=== PATIENT | female | born 1950 | race African-American/Black ===

== ENCOUNTER 2020-04-02 18:48 | Inpatient (IN) | payer MEDICARE, MEDICAID ==
[~2020-04-02] VITALS: Ht 170.2 cm; Wt 111.6 kg
[2020-04-02 19:00] VITALS: BP 121/84
[2020-04-02 19:30] VITALS: BP 121/84
[2020-04-02] MEDS ORDERED: METHYL SALICYLATE/MENTHOL CREAM 85GM TOP PRN (19:30)
[2020-04-02] MEDS ORDERED: BISACODYL 10MG SUPP PR PRN (19:30)
[2020-04-02] MEDS ORDERED: ALPRAZOLAM 0.5 MG TABLET PO PRN (19:30)
[2020-04-02] MEDS ORDERED: MAGNESIUM HYDROXIDE 400MG/5ML 30ML UDC PO PRN (19:30)
[2020-04-02] MEDS: SENNOSIDES 8.6MG TABLET PO PRN (21:01)
[2020-04-02] MEDS: METHOCARBAMOL 500MG TABLET PO SCH (21:01)
[2020-04-02] MEDS: HYDROCODONE/ACETAMINOPHEN 10/325MG TABLET PO PRN (21:03)
[2020-04-03] MEDS: HYDROCODONE/ACETAMINOPHEN 10/325MG TABLET PO PRN ×6 (01:06→22:58)
[2020-04-03] MEDS ORDERED: ALPR2TAB2 PO (04:53)
[2020-04-03] MEDS ORDERED: HYDR-3281 PO (04:55)
[2020-04-03 06:57] LABS: BASOPHILS % 0.9 % (0.0-2.0); EOSINOPHILS % 3.1 % (0.0-5.0); HEMOGLOBIN. 14.6 g/dL (12.0-16.0); LYMPHOCYTES % 45.9 % (20.0-50.0); MEAN CORPUSCULAR HEMOGLOBIN 29.6 pg (28.0-32.0); MEAN CORPUSCULAR VOLUME 84.8 fL (81.0-99.0); MEAN PLATELET VOLUME 7.8 fl (7.4-10.4); MONOCYTES % 11.2 % (2.0-8.0); NEUTROPHILS % 38.9 % (40.0-76.0); PLATELET 189 x1000/uL (130-400); RED BLOOD CELL COUNT 4.95 mill/uL (4.2-5.4); RED CELL DISTRIBUTION WIDTH 13.5 % (11.6-14.6)
[2020-04-03 07:01] LABS: CHLORIDE 105 mEq/L (98-107)
[2020-04-03 07:15] LABS: LDL CHOLESTEROL 128 mg/dL (5-100)
[2020-04-03 07:19] LABS: HDL CHOLESTEROL 49 mg/dL (40-59)
[2020-04-03 08:12] VITALS: BP 126/69
[2020-04-03] MEDS: DOCUSATE SODIUM 100MG CAPSULE PO SCH ×2 (09:25→17:35)
[2020-04-03] MEDS: AMLODIPINE 10MG TABLET PO SCH (09:26)
[2020-04-03] MEDS: METHOCARBAMOL 500MG TABLET PO SCH ×4 (09:26→21:28)
[2020-04-03] MEDS: IBUPROFEN 800MG TABLET PO SCH ×3 (09:26→17:35)
[2020-04-03] MEDS: POLYETHYLENE GLYCOL 3350 (17GM) 1 DOSE PACK PO SCH (09:27)
[2020-04-03] MEDS: HEPARIN 5000 UNITS/ML VIAL SUBCUT SCH ×2 (09:27→21:28)
[2020-04-03] MEDS: LIDOCAINE 5% PATCH TOP SCH (09:28)
[2020-04-03 17:07] LABS: CLARITY URINE CLEAR (CLEAR); COLOR URINE DARK YELLOW (YELLOW); KETONES URINE NEGATIVE (NEGATIVE); LEUKOCYTE ESTERASE URINE TRACE (NEGATIVE); NITRITE URINE NEGATIVE (NEGATIVE); OCCULT BLOOD URINE NEGATIVE (NEGATIVE); PH URINE 6.5 (4.5-8.0); PROTEIN URINE NEGATIVE (NEGATIVE); UROBILINOGEN URINE 0.2 E.U./dL (0.2-1.0)
[2020-04-03 20:00] VITALS: BP 137/75
[2020-04-03] MEDS: ALPRAZOLAM 0.5 MG TABLET PO SCH (21:28)
[2020-04-03] MEDS: ATORVASTATIN CALCIUM 20MG TABLET PO SCH (21:28)
[2020-04-04] MEDS: HYDROCODONE/ACETAMINOPHEN 10/325MG TABLET PO PRN ×5 (05:07→21:18)
[2020-04-04 08:08] VITALS: BP 118/64
[2020-04-04] MEDS: AMLODIPINE 10MG TABLET PO SCH (08:27)
[2020-04-04] MEDS: METHOCARBAMOL 500MG TABLET PO SCH ×4 (08:27→21:16)
[2020-04-04] MEDS: POLYETHYLENE GLYCOL 3350 (17GM) 1 DOSE PACK PO SCH (08:28)
[2020-04-04] MEDS: IBUPROFEN 800MG TABLET PO SCH ×3 (08:28→16:58)
[2020-04-04] MEDS: DOCUSATE SODIUM 100MG CAPSULE PO SCH ×2 (08:28→16:58)
[2020-04-04] MEDS: HEPARIN 5000 UNITS/ML VIAL SUBCUT SCH ×2 (08:34→21:24)
[2020-04-04] MEDS: LIDOCAINE 5% PATCH TOP SCH (08:34)
[2020-04-04] MEDS ORDERED: ALPRAZOLAM 0.25 MG TABLET PO SCH (09:00)
[2020-04-04 20:00] VITALS: BP 133/58
[2020-04-04] MEDS: ATORVASTATIN CALCIUM 20MG TABLET PO SCH (21:16)
[2020-04-04] MEDS: ALPRAZOLAM 0.5 MG TABLET PO SCH (21:16)
[2020-04-04] MEDS: SENNOSIDES 8.6MG TABLET PO PRN (21:17)
[2020-04-05] MEDS: HYDROCODONE/ACETAMINOPHEN 10/325MG TABLET PO PRN ×5 (01:56→22:26)
[2020-04-05 08:00] VITALS: BP 132/78
[2020-04-05] MEDS: POLYETHYLENE GLYCOL 3350 (17GM) 1 DOSE PACK PO SCH (08:38)
[2020-04-05] MEDS: ALPRAZOLAM 0.5 MG TABLET PO SCH ×2 (08:38→20:35)
[2020-04-05] MEDS: DOCUSATE SODIUM 100MG CAPSULE PO SCH ×2 (08:39→17:20)
[2020-04-05] MEDS: IBUPROFEN 800MG TABLET PO SCH ×3 (08:39→17:21)
[2020-04-05] MEDS: METHOCARBAMOL 500MG TABLET PO SCH ×4 (08:39→20:34)
[2020-04-05] MEDS: AMLODIPINE 10MG TABLET PO SCH (08:39)
[2020-04-05] MEDS: HEPARIN 5000 UNITS/ML VIAL SUBCUT SCH ×2 (08:40→20:34)
[2020-04-05] MEDS: LIDOCAINE 5% PATCH TOP SCH (08:40)
[2020-04-05] MEDS ORDERED: BISACODYL 5MG TABLET PO PRN (19:00)
[2020-04-05 20:00] VITALS: BP 132/58
[2020-04-05] MEDS: ATORVASTATIN CALCIUM 20MG TABLET PO SCH (20:34)
[2020-04-06] MEDS: HYDROCODONE/ACETAMINOPHEN 10/325MG TABLET PO PRN ×4 (05:54→21:22)
[2020-04-06 08:00] VITALS: BP 153/86
[2020-04-06] MEDS: DOCUSATE SODIUM 100MG CAPSULE PO SCH ×2 (08:52→16:38)
[2020-04-06] MEDS: AMLODIPINE 10MG TABLET PO SCH (08:52)
[2020-04-06] MEDS: IBUPROFEN 800MG TABLET PO SCH ×3 (08:52→16:38)
[2020-04-06] MEDS: ALPRAZOLAM 0.5 MG TABLET PO SCH ×2 (08:53→21:23)
[2020-04-06] MEDS: METHOCARBAMOL 500MG TABLET PO SCH ×4 (08:53→21:21)
[2020-04-06] MEDS: POLYETHYLENE GLYCOL 3350 (17GM) 1 DOSE PACK PO SCH (08:53)
[2020-04-06] MEDS: LIDOCAINE 5% PATCH TOP SCH (08:58)
[2020-04-06] MEDS: HEPARIN 5000 UNITS/ML VIAL SUBCUT SCH ×2 (10:11→21:00)
[2020-04-06] MEDS: ATORVASTATIN CALCIUM 20MG TABLET PO SCH (21:21)
[2020-04-06 21:43] VITALS: BP 134/80
[2020-04-07] MEDS: HYDROCODONE/ACETAMINOPHEN 10/325MG TABLET PO PRN ×4 (06:06→22:51)
[2020-04-07 08:14] VITALS: BP 156/83
[2020-04-07] MEDS: LIDOCAINE 5% PATCH TOP SCH (09:00)
[2020-04-07] MEDS: HEPARIN 5000 UNITS/ML VIAL SUBCUT SCH (09:32)
[2020-04-07] MEDS: ALPRAZOLAM 0.5 MG TABLET PO SCH (09:33)
[2020-04-07] MEDS: DOCUSATE SODIUM 100MG CAPSULE PO SCH ×2 (09:33→16:45)
[2020-04-07] MEDS: POLYETHYLENE GLYCOL 3350 (17GM) 1 DOSE PACK PO SCH (09:33)
[2020-04-07] MEDS: IBUPROFEN 800MG TABLET PO SCH ×3 (09:34→16:50)
[2020-04-07] MEDS: METHOCARBAMOL 500MG TABLET PO SCH ×4 (09:35→21:28)
[2020-04-07] MEDS: AMLODIPINE 10MG TABLET PO SCH (09:35)
[2020-04-07 20:00] VITALS: BP 130/64
[2020-04-07] MEDS: SENNOSIDES 8.6MG TABLET PO PRN (21:28)
[2020-04-07] MEDS: ENOXAPARIN 30MG/0.3ML SYR SUBCUT SCH (21:28)
[2020-04-07] MEDS: ATORVASTATIN CALCIUM 20MG TABLET PO SCH (21:28)
[2020-04-07] MEDS ORDERED: ALPRAZOLAM 0.5 MG TABLET PO SCH (22:26)
[2020-04-08] MEDS: HYDROCODONE/ACETAMINOPHEN 10/325MG TABLET PO PRN ×4 (06:23→18:55)
[2020-04-08 07:40] VITALS: BP 155/76
[2020-04-08] MEDS: POLYETHYLENE GLYCOL 3350 (17GM) 1 DOSE PACK PO SCH (08:01)
[2020-04-08] MEDS: ENOXAPARIN 30MG/0.3ML SYR SUBCUT SCH ×2 (08:02→20:35)
[2020-04-08] MEDS: METHOCARBAMOL 500MG TABLET PO SCH ×4 (08:02→20:34)
[2020-04-08] MEDS: ALPRAZOLAM 0.5 MG TABLET PO SCH ×2 (08:02→20:34)
[2020-04-08] MEDS: DOCUSATE SODIUM 100MG CAPSULE PO SCH ×2 (08:03→16:08)
[2020-04-08] MEDS: AMLODIPINE 10MG TABLET PO SCH (08:03)
[2020-04-08] MEDS: LIDOCAINE 5% PATCH TOP SCH (08:04)
[2020-04-08] MEDS: IBUPROFEN 800MG TABLET PO SCH ×3 (08:04→16:08)
[2020-04-08] MEDS ORDERED: ENOXAPARIN 40MG/0.4ML SYR SUBCUT SCH (09:00)
[2020-04-08 20:00] VITALS: BP 143/82
[2020-04-08] MEDS: ATORVASTATIN CALCIUM 20MG TABLET PO SCH (20:34)
[2020-04-09] MEDS: HYDROCODONE/ACETAMINOPHEN 10/325MG TABLET PO PRN ×5 (06:26→22:03)
[2020-04-09 07:48] VITALS: BP 148/79
[2020-04-09] MEDS: ALPRAZOLAM 0.5 MG TABLET PO SCH ×2 (08:08→20:39)
[2020-04-09] MEDS: IBUPROFEN 800MG TABLET PO SCH ×3 (08:09→16:28)
[2020-04-09] MEDS: METHOCARBAMOL 500MG TABLET PO SCH ×4 (08:09→20:39)
[2020-04-09] MEDS: AMLODIPINE 10MG TABLET PO SCH (08:09)
[2020-04-09] MEDS: DOCUSATE SODIUM 100MG CAPSULE PO SCH ×2 (08:09→16:28)
[2020-04-09] MEDS: ENOXAPARIN 30MG/0.3ML SYR SUBCUT SCH ×2 (08:10→20:40)
[2020-04-09] MEDS: POLYETHYLENE GLYCOL 3350 (17GM) 1 DOSE PACK PO SCH (08:10)
[2020-04-09] MEDS: LIDOCAINE 5% PATCH TOP SCH (08:11)
[2020-04-09 20:00] VITALS: BP 125/74
[2020-04-09] MEDS: ATORVASTATIN CALCIUM 20MG TABLET PO SCH (20:39)
[2020-04-10] MEDS: HYDROCODONE/ACETAMINOPHEN 10/325MG TABLET PO PRN ×2 (05:46→10:54)
[2020-04-10 07:57] VITALS: BP 146/83
[2020-04-10] MEDS: DOCUSATE SODIUM 100MG CAPSULE PO SCH (08:36)
[2020-04-10] MEDS: POLYETHYLENE GLYCOL 3350 (17GM) 1 DOSE PACK PO SCH (08:36)
[2020-04-10] MEDS: METHOCARBAMOL 500MG TABLET PO SCH ×2 (08:37→13:28)
[2020-04-10] MEDS: AMLODIPINE 10MG TABLET PO SCH (08:38)
[2020-04-10] MEDS: ALPRAZOLAM 0.5 MG TABLET PO SCH (08:38)
[2020-04-10] MEDS: ENOXAPARIN 30MG/0.3ML SYR SUBCUT SCH ×2 (08:39→08:46)
[2020-04-10] MEDS: LIDOCAINE 5% PATCH TOP SCH (08:41)
[2020-04-10] MEDS: IBUPROFEN 800MG TABLET PO SCH ×2 (08:42→13:32)
[2020-04-10 10:20] VITALS: BP 146/83
[2020-04-10 13:32] VITALS: BP 119/72
== END 2020-04-10 14:35 | disposition home or self-care (01) | DRG 552 ==
PROVIDERS: ADMIT Psychiatry & Neurology Neurology; ATTEND Internal Medicine
DX: S22.089A Unspecified fracture of T11-T12 vertebra, initial encounter for closed fracture (principal); E66.01 Morbid (severe) obesity due to excess calories; Z68.39 Body mass index [BMI] 39.0-39.9, adult; M19.90 Unspecified osteoarthritis, unspecified site; I10 Essential (primary) hypertension; F41.1 Generalized anxiety disorder; F32.9 Major depressive disorder, single episode, unspecified; E78.5 Hyperlipidemia, unspecified; R29.6 Repeated falls; M47.816 Spondylosis without myelopathy or radiculopathy, lumbar region; G89.4 Chronic pain syndrome; Z60.2 Problems related to living alone; K59.00 Constipation, unspecified; W18.39XA Other fall on same level, initial encounter; Y93.89 Activity, other specified; Y92.89 Other specified places as the place of occurrence of the external cause; Y99.8 Other external cause status
CPT/HCPCS: 36415; 80048; 80061; 81003; 85025; 92523; 93970; 97110; 97116; 97162; 97166; 97530; 97535; J1644; J1650